=== PATIENT | male | born 1995 | race American Indian/Alaskan Native ===

== ENCOUNTER 2020-06-27 15:54 | Emergency (ER) | payer SELFPAY ==
[2020-06-27 16:06] VITALS: BP 137/66
== END 2020-06-27 16:15 | disposition left against medical advice (07) ==
LOC: ED 15:54
DX: Z53.21 Procedure and treatment not carried out due to patient leaving prior to being seen by health care provider (principal)

== ENCOUNTER 2020-07-07 13:14 | Emergency (ER) | payer SELFPAY ==
[2020-07-07 14:06] VITALS: BP 137/80
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
== END 2020-07-07 14:22 | disposition home or self-care (01) ==
LOC: ED 13:14
DX: S01.91XD Laceration without foreign body of unspecified part of head, subsequent encounter (principal); Z48.02 Encounter for removal of sutures; Z98.890 Other specified postprocedural states; Z88.0 Allergy status to penicillin; X58.XXXD Exposure to other specified factors, subsequent encounter
CPT/HCPCS: 99282